=== PATIENT | female | born 1950 | race Caucasian/White ===

== ENCOUNTER 2017-10-16 19:35 | Inpatient (IN) | payer OTHER ==
--- NOTE | 2017-10-16 19:45 | CPEKG ---
Heart Rate: 98 RR Interval: 612 P-R Interval: 132 QRSD Interval: 92 QT Interval: 364 QTC Interval: 465 P Hudson: 46 QRS Hudson: 61 T Wave Hudson: 28 EKG Severity - NORMAL ECG - EKG Impression: SINUS RHYTHM Electronically Signed By: Maurilio Grossman 17-Oct-2017 08:04:30
--- NOTE | 2017-10-16 20:20 | EDPHY ---
H & P Stated Complaint: Chest pain, altered mental status Time Seen by Provider: 10/16/17 19:40 HPI/ROS: CHIEF COMPLAINT: Chest pain Limitations: Expressive aphasia, history per family and Dr. Son HISTORY OF PRESENT ILLNESS: 67-year-old female status post recent hemorrhagic CVA presents with chest pain. Onset of SOB and left sided cp this afternoon. Associated with nausea. The patient is unable to provide any details about the chest pain. She currently does not have chest pain. Nitroglycerin given by EMS. Per Dr. Son, pt's cognition has changed in the past 3 days. Unclear etiology of change in mentation, but possibly secondary to baclofen. She was on Wellbutrin prior to the CVA and then switched to Celebrex. Celebrex was discontinued d/t cognitive change. CT scan brain today showed no new changes. Per family, pt is normally quite sociable and agreeable. Fairly abrupt change in the past 3-4 days. REVIEW OF SYSTEMS: Unable to determine - Personal History Current Tetanus Diphtheria and Acellular Pertussis (TDAP): Yes - Medical/Surgical History Hx Asthma: No Hx Chronic Respiratory Disease: No Hx Diabetes: No Hx Cardiac Disease: No Hx Renal Disease: No Hx Cirrhosis: No Hx Alcoholism: No Hx HIV/AIDS: No Hx Splenectomy or Spleen Trauma: No Other PMH: cataract surgery, CVA August 2017 - Social History Smoking Status: Former smoker Additional Social History: - Physical Exam Exam: General Appearance: Alert, pleasant, expressive aphasia Eyes: Pupils equal and round, no conjunctival pallor or injection ENT, Mouth: Mucous membranes moist Neck: Normal inspection Respiratory: Lungs are clear to auscultation Cardiovascular: Regular rate and rhythm Gastrointestinal: Abdomen is soft and nontender Neurological: Alert, left sided hemiparesis and neglect Skin: Warm and dry Extremities: No tenderness Psychiatric: Tangential thought process, fluctuating affect Constitutional: Initial Vital Signs Temperature (C) 36.9 C 10/16/17 19:43 Heart Rate 108 H 10/16/17 19:43 Respiratory Rate 20 10/16/17 19:43 Blood Pressure 133/85 H 10/16/17 19:43 O2 Sat (%) 92 10/16/17 19:43 O2 Delivery Mode Nasal Cannula O2 (L/minute) 2 Allergies/Adverse Reactions: prednisone Allergy (Verified 10/16/17 19:43) Home Medications: Medication Instructions Recorded Cholecalciferol Vit D3 [Vitamin D3 1,000 units PO DAILY 09/27/17 (*)] Enoxaparin [Lovenox 40 MG (*)] 40 mg SQ DAILY 09/27/17 Metoprolol Tartrate [Lopressor 50 50 mg PO BID 09/27/17 mg (*)] Pantoprazole Sodium [Protonix 40mg 40 mg PO DAILY 09/27/17 (*)] amLODIPine BESYLATE [Norvasc 5 mg 5 mg PO DAILY 09/27/17 (*)] Acetaminophen [Tylenol ES 500 mg 1,000 mg PO Q8 10/16/17 (*)] Baclofen [Baclofen 10 mg (*)] 5 mg PO QID 10/16/17 Bisacodyl [Dulcolax] 10 mg RC DAILY PRN 10/16/17 Cetirizine [ZyrTEC 10 mg (*)] 10 mg PO DAILY 10/16/17 Citalopram [CeleXA] 20 mg PO DAILY 10/16/17 Methyl Salicylate/Menthol [Bengay 1 bao TP Q6 PRN 10/16/17 (*)] Mineral Oil/Pet Hy-Phl [Aquaphor 1 bao TP BID 10/16/17 Ointment (*)] Sennosides [Senokot 8.6mg (OTC)] 1 each PO BID PRN 10/16/17 Tears/Dextran 70/Hypromellose 1 drop EACHEYE Q2 PRN 10/16/17 [Natural Balance Tears (*)] diphenhydrAMINE [Benadryl Cream] 1 bao TP QID PRN 10/16/17 traMADol [Ultram 50 mg (*)] 50 mg PO Q6 PRN 10/16/17 traZODone [traZODONE 50MG (*)] 50 mg PO HS 10/16/17 Medical Decision Making - Diagnostics EKG Interpretation: EKG interpreted by me reveals normal sinus rhythm, rate 98, no ST or T segment changes. Interpretation: Normal EKG Imaging Results: Imaging Impressions Chest X-Ray 10/16/17 19:47 Impression: Peribronchial cuffing may be manifestation of interstitial edema or bronchitis. Chest/Thorax CTA 10/16/17 21:00 Impression: 1. Nondiagnostic study for pulmonary embolism due to transient interruption of the contrast column (due to the patient talking throughout the acquisition). 2. Normal caliber thoracic aorta. No dissection. 3. Clear lungs. Comment: The case was discussed with Dr. Shu Patel. Dr. Patel indicated the patient should be transferred back to the Emergency Department for further assessment. E:amm CXR: NAD ED Course/Re-evaluation: This pt presents with cp and SOB, asymptomatic now. EKG reveals no evidence of ischemia or dysrhythmia. Chest x-ray is unremarkable. ddimer slightly high; CTA chest ordered to r/o PE, though poor study, unable to visualize pulm vasculature. Will hold off on repeat CT for now, keep pt on Lovenox. Consulted with Dr. Son, plan for admission, eval of cp and AMS. New AMS, unclear etiology, requests MRI while hospitalized. The hospitalist service was consulted for admission. Differential Diagnosis: Differential diagnosis includes though it is not limited to pneumonia, pneumothorax, pulmonary embolism, aortic dissection, pericarditis, acute coronary syndrome. - Data Points Laboratory Results: Laboratory Results 10/16/17 20:16 10/16/17 20:16 10/16/17 10/16/17 10/16/17 20:20 20:16 20:16 WBC RBC Hgb Hct MCV MCH MCHC RDW Plt Count MPV Neut % (Auto) Lymph % (Auto) [place] % (Auto) Eos % (Auto) Baso % (Auto) Nucleat RBC Rel Count Absolute Neuts (auto) Absolute Lymphs (auto) Absolute Monos (auto) Absolute Eos (auto) Absolute Basos (auto) Absolute Nucleated RBC Immature Gran % Immature Gran # D-Dimer 0.68 ug/mLFEU H ug/mLFEU (0.00-0.50) Sodium 136 mEq/L mEq/L (135-145) Potassium 4.0 mEq/L mEq/L (3.3-5.0) Chloride 103 mEq/L mEq/L (97-110) Carbon Dioxide 24 mEq/l mEq/l (22-31) Anion Gap 9 mEq/L mEq/L (8-16) BUN 10 mg/dL mg/dL (7-23) Creatinine 0.6 mg/dL mg/dL (0.6-1.0) Estimated GFR > 60 Glucose 250 mg/dL H mg/dL (70-100) Calcium 9.9 mg/dL mg/dL (8.5-10.4) Total Bilirubin 0.2 mg/dL mg/dL (0.1-1.4) Conjugated Bilirubin 0.2 mg/dL mg/dL (0.0-0.5) Unconjugated Bilirubin 0.0 mg/dL mg/dL (0.0-1.1) AST 42 IU/L IU/L (14-46) ALT 67 IU/L H IU/L (9-52) Alkaline Phosphatase 91 IU/L IU/L (38-126) POC Troponin I 0.00 ng/mL ng/mL (0.00-0.08) NT-Pro-B Natriuret Pep 205 pg/mL H pg/mL (0-125) Total Protein 6.2 g/dL L g/dL (6.3-8.2) Albumin 3.7 g/dL g/dL (3.5-5.0) Urine Color Urine Appearance Urine pH Ur Specific [place] Urine Protein Urine Ketones Urine Blood Urine Nitrate Urine Bilirubin Urine Urobilinogen Ur Leukocyte Esterase Urine RBC Urine WBC Ur Epithelial Cells Urine Bacteria Urine Glucose Ethyl Alcohol < 10 mg/dL mg/dL (0-10) 10/16/17 10/16/17 20:16 20:03 WBC 7.83 10^3/uL 10^3/uL (3.80-9.50) RBC 5.13 10^6/uL 10^6/uL (4.18-5.33) Hgb 15.2 g/dL g/dL (12.6-16.3) Hct 45.2 % % (38.0-47.0) MCV 88.1 fL fL (81.5-99.8) MCH 29.6 pg pg (27.9-34.1) MCHC 33.6 g/dL g/dL (32.4-36.7) RDW 13.9 % % (11.5-15.2) Plt Count 396 10^3/uL 10^3/uL (150-400) MPV 10.1 fL fL (8.7-11.7) Neut % (Auto) 65.5 % % (39.3-74.2) Lymph % (Auto) 23.1 % % (15.0-45.0) [place] % (Auto) 8.8 % % (4.5-13.0) Eos % (Auto) 1.7 % % (0.6-7.6) Baso % (Auto) 0.4 % % (0.3-1.7) Nucleat RBC Rel Count 0.0 % % (0.0-0.2) Absolute Neuts (auto) 5.13 10^3/uL 10^3/uL (1.70-6.50) Absolute Lymphs (auto) 1.81 10^3/uL 10^3/uL (1.00-3.00) Absolute Monos (auto) 0.69 10^3/uL 10^3/uL (0.30-0.80) Absolute Eos (auto) 0.13 10^3/uL 10^3/uL (0.03-0.40) Absolute Basos (auto) 0.03 10^3/uL 10^3/uL (0.02-0.10) Absolute Nucleated RBC 0.00 10^3/uL 10^3/uL (0-0.01) Immature Gran % 0.5 % % (0.0-1.1) Immature Gran # 0.04 10^3/uL 10^3/uL (0.00-0.10) D-Dimer Sodium Potassium Chloride Carbon Dioxide Anion Gap BUN Creatinine Estimated GFR Glucose Calcium Total Bilirubin Conjugated Bilirubin Unconjugated Bilirubin AST ALT Alkaline Phosphatase POC Troponin I NT-Pro-B Natriuret Pep Total Protein Albumin Urine Color YELLOW Urine Appearance CLEAR Urine pH 6.0 (5.0-7.5) Ur Specific [place] 1.008 (1.002-1.030) Urine Protein NEGATIVE (NEGATIVE) Urine Ketones NEGATIVE (NEGATIVE) Urine Blood NEGATIVE (NEGATIVE) Urine Nitrate NEGATIVE (NEGATIVE) Urine Bilirubin NEGATIVE (NEGATIVE) Urine Urobilinogen NEGATIVE EU EU (0.2-1.0) Ur Leukocyte Esterase NEGATIVE (NEGATIVE) Urine RBC NONE SEEN /hpf /hpf (0-3) Urine WBC 1-3 /hpf /hpf (0-3) Ur Epithelial Cells TRACE /lpf /lpf (NONE-1+) Urine Bacteria TRACE /hpf H /hpf (NONE SEEN) Urine Glucose 3+ H (NEGATIVE) Ethyl Alcohol Point of Care Test Results: Chemistry 10/16/17 20:20 POC Troponin I 0.00 ng/mL ng/mL (0.00-0.08) Departure - Departure
[2017-10-16 20:39] LABS: PLATELET COUNT 396 10^3/uL (150-400)
[2017-10-16] MEDS ORDERED: IOPAMIDOL (ISOVUE 370) 100 ML BTL IV ONE (21:03)
[2017-10-16] MEDS ORDERED: ONDANSETRON 4 MG/2 ML VIAL IVP PRN (21:10)
[2017-10-16] MEDS ORDERED: ONDANSETRON DISINTEGRATING 4 MG TAB PO PRN (21:10)
--- NOTE | 2017-10-16 22:47 | GHP ---
[f rep st] HISTORY AND PHYSICAL DATE OF ADMISSION: 10/16/2017 CHIEF COMPLAINT: Chest pain, confusion. HISTORY OF PRESENT ILLNESS: This is obtained from Dr. Perez in the ER and review of rehab notes, as patient is encephalopathic. HISTORY OF PRESENT ILLNESS: A 67-year-old female who presented to [facility] 09/10 with left upper and lower extremity weakness and was found to have a right frontal intraparenchymal hemorrhagic stroke. She underwent craniotomy 09/11. She was admitted to rehab at [facility] on 09/27 under the care of Dr. Jones with cognitive impairment, left hemiparesis. Brought to ER for left-sided chest pain with shortness of breath and nausea this afternoon. No radiation, numbness, or tingling. She is not good historian with acute AMS. Per Dr. Gotti at rehab, her mental status has changed over the past 3 days. She is more confused and not participating in therapies. CTH today was stable, but MRI not complete, because of agitation. Of note, Baclofen had been increased to 15mg QID yesterday. Was on Wellbutrin before stroke and this was changed to Celexa at rehab. Both Baclofen and Celexa stopped today. Upon my interview, patient says the ceiling is spinning. She is talking to her Ilia, who is not in the room. REVIEW OF SYSTEMS: I completed a 10-point review of systems per chart review. PAST MEDICAL HISTORY: Hypertension, cataracts, right frontal intraparenchymal hemorrhagic stroke, depression. PAST SURGICAL HISTORY: Cataract surgery, craniotomy 09/11/17. SOCIAL HISTORY: Tobacco dependence. No alcohol. FAMILY HISTORY: Noncontributory. CURRENT MEDICATIONS: Tylenol, Zofran, Norvasc 5 mg daily, Zyrtec, vitamin D, Celexa 20 mg stopped today, baclofen 15 mg q.i.d. scheduled, stopped today, Lovenox, metoprolol 50 mg b.i.d., Protonix 40 daily, senna, tramadol 50 mg q.6 hours p.r.n., trazodone 50 mg q.h.s., ALLERGIES: Prednisone. PHYSICAL EXAMINATION: VITAL SIGNS: Temperature is 135/80. Heart rate is in 100s, respiration 19, 96% on 2 L. Temperature is 36.9. GENERAL: Lying in bed , no acute distress, but mildly restless. HEENT: PERRLA. Moist mucous membranes. CV: Regular, tachy. Reproducible chest pain, left side. There is no rash or ulceration over chest or breasts. LUNGS: Clear anteriorly. GI: Soft, nontender, nondistended. Positive bowel sounds. : No Anderson. MUSCULOSKELETAL: 5/5 upper extremity strength, right. Persistent left hemiparesis, upper and lower extremities. NEURO: 2 through 12 intact. PSYCH: She is agitated. She is talking to her , who is not in the room. She is oriented to our president, knows she is in the hospital but not in [facility], does not know the year. LABS: WBC 7, hemoglobin 15, hematocrit 45, platelets 396. Dimer is 0.68. Sodium 136, potassium 4.0, chloride 103, carbon dioxide 24, creatinine 0.6, glucose 250. LFT: Total bili 0.2, AST 42, ALT 67. Troponin 0.00. BNP is 205. Total protein 6.2, albumin is 3.7. UA: Trace bacteria, 1-3 whites. BAL is negative. EKG is personally reviewed by me, normal sinus rhythm, artifact. ASSESSMENT AND PLAN: 1. Left-sided chest pain: not able to endorse a full history. There is reproducible component on my exam; may be radiation from shoulder pain. Had negative xray 10/08. Initial troponin, EKG negative for ischemia. Repeat troponin. TTE in August at [place] [facility] with an EF 75% and left ventricular hypertrophy. Dimer was minimally elevated; CTA ordered in ER. 2. [id number] encephalopathy: underlying cognitive impairment related to her stroke, but this has worsened over the last 3 days. Differential is infection, new stroke, or medications. CT head today was stable. Needs MRI; likely with sedation. Baclofen and Celexa were new medications for her at rehab , and these have been discontinued. UA is normal, CXR negative. 3. Recent intraparenchymal hemorrhage and evacuation: CT stable today. She has been in inpatient rehab. She has profound left upper and lower extremity hemiparesis. Continue physical therapy, occupational therapy. She will likely need discharge to a jail facility given lack of caregivers at home. 4. Dysphagia: Related to stroke. Continue speech therapy. Continue modified diet. 5. Recent left shoulder pain: limited range of motion. She had a normal x- ray 10/08 and does have a history of rotator cuff injury. She has a sling to offload. PRN APAP. 6. Hypertension: Amlodipine and metoprolol. 7. Tobacco dependence: Previously on Wellbutrin, can consider a nicotine patch. 8. Diet: Speech eval in the morning. DISPOSITION: Patient warrants inpatient admission for evaluation of chest pain , repeat MRI, and further evaluation of acute encephalopathy. /[id number]/MODL MTDD
[2017-10-16] MEDS ORDERED: DIPHENHYDRAMINE CREAM TP PRN (23:02)
[2017-10-16] MEDS ORDERED: TEARS/DEXTRAN 70/HYPROMELLOSE 15 ML OPHT.BTL EACHEYE PRN (23:02)
[2017-10-16] MEDS ORDERED: SENNOSIDES 1 TAB PO PRN (23:02)
[2017-10-17] MEDS: METOPROLOL TARTRATE 50 MG TAB PO SCH ×3 (02:01→21:19)
[2017-10-17] MEDS: amLODIPine BESYLATE 5 MG TAB PO SCH (09:19)
[2017-10-17] MEDS: CHOLECALCIFEROL VIT D3 1,000 UNITS TAB PO SCH (09:19)
[2017-10-17] MEDS: PANTOPRAZOLE SODIUM 40 MG TAB PO SCH (09:19)
[2017-10-17] MEDS: AQUAPHOR OINTMENT 3.5 OZ JAR TP SCH ×2 (09:22→21:19)
--- NOTE | 2017-10-17 11:41 | PDMN ---
Medical Necessity Medical necessity: Pt meets IP criteria per MD; est los >2 mn for eval/tx of worsening encephalopathy, chest pain, shortness of breath & nausea s/p recent craniotomy; requiring further workup/monitoring & therapies; hx CVA, dysphagia, upper & lower extremity hemiparesis & HTN; per H&P & order 10/16/17
--- NOTE | 2017-10-17 11:56 | ASMTCASEMG ---
Living Arrangements What is your living Answers: With Spouse arrangement? Who do you live with? Type Of Residence What kind of residence do Answers: House you live in? Discharge Plan Comments Coordination Status Comments Notes: Pt is a 67 y/o female admitted for ams, recent cva and chest pain. Pt was recently at [facility] inpatient rehab from 09/27/17 to 10/16/17. Therapies have been ordered and awaiting recommendations. Pt will most likely d/c back to [facility] inpatient rehab, if appropriate. CM spoke to pts son Tristan (P# [phone]) and provided updates. CM to follow. Plan: TBD Date Signed: 10/17/2017 11:55 AM Electronically Signed By:RAPHAEL Harden
[2017-10-17] MEDS: ACETAMINOPHEN 325 MG TAB PO PRN (12:37)
[2017-10-17] MEDS ORDERED: LIDOCAINE 2% VISCOUS 15 ML UDCUP PO ONE (12:52)
[2017-10-17] MEDS ORDERED: MAG HYDROX/AL HYDROX/SIMETH 30 ML UDCUP PO ONE (12:52)
[2017-10-17] MEDS ORDERED: HYOSCYAMINE SULFATE 0.125 MG TAB PO ONE (12:52)
--- NOTE | 2017-10-17 13:06 | HOSPPROG ---
Hospitalist Progress Note Assessment/Plan: Chest pain - EKG non-ischemic, trop neg x2. Doubt PE as no pleuritic symptoms, tachycardia or hypoxia. D dimer essentially negative when age adjusted criteria applied, CTA non-diagnostic. Will check LE us (neg). With burning sensation she describes, will try GI cocktail, though I suspect this is MSK in origin related to her spasticity of LUE. Resume lower dose of Baclofen and monitor. PT/OT evals. Encephalopathy - CT and MRI do not suggest new stroke or hemorrhage. Mentation seems improved today. Could have been from rapid up-titration of Baclofen from 5 QID to 15 QID. She was previously doing well on lower dose and she wishes to resume this. Will restart Baclofen at lower dose of 5 mg TID. SSRI also held ICH - recent craniotomy at [place] in 08/2017. Dense left hemiparesis. She has not progressed after 1 month of inpt rehab. Cont PT/OT, speech Dysphagia - speech Hypertension - a bit labile, but fairly well controlled on Metoprolol and Amlodipine. Will continue at current doses. DVT PPLX - high risk, start Lovenox Dispo - inpt, will need ongoing hospitalization for further evaluation and acute PT/OT. Per rehab notes, she has not made progress there and SNF is recommended. CM following. Subjective: Pt doing ok. She still has "burning" sensation on her left chest wall, seems positional. No fevers/chills or cough. No SOB. Objective: Vital Signs Temp Pulse Resp BP Pulse Ox 36.9 C 89 18 155/95 H 91 L 10/17/17 11:45 10/17/17 11:45 10/17/17 11:45 10/17/17 11:45 10/17/17 11:45 10/16/17 10/17/17 10/18/17 05:59 05:59 05:59 Intake Total 550 500 Output Total 150 Balance 400 500 - Physical Exam Constitutional: no apparent distress Eyes: PERRL Ears, Nose, Mouth, Throat: moist mucous membranes Cardiovascular: regular rate and rhythym Respiratory: no respiratory distress, clear to auscultation Gastrointestinal: normoactive bowel sounds, soft, non-tender abdomen Skin: warm Musculoskeletal: other (dense left hemiparesis) Neurologic: AAOx3 Psychiatric: interacting appropriately ICD10 Worksheet Patient Problems: Problems Problem Status Onset Chest pain Acute Altered mental status Acute Hemorrhagic cerebrovascular accident (CVA) Acute
[2017-10-17] MEDS ORDERED: PNEUMOC 13-VAL CONJ-DIP CRM/PF 0.5 ML SYR IM ONE (13:16)
[2017-10-17] MEDS: BACLOFEN 10 MG TAB PO SCH ×3 (13:24→21:19)
[2017-10-17] MEDS: ENOXAPARIN 40 MG/0.4 ML SYR SC SCH (13:49)
--- NOTE | 2017-10-17 14:52 | ASMTCMCOM ---
CM Note CM Note Notes: CM spoke w/ pts family regarding d/c POC per their request. PT is recommending inpatient rehab. CM spoke to Yudith from inpatient rehab and they had a team discussion today and thought that it would not be appropriate for pt to return. Yuidth reports that pt is unable to do 3 hours of therapies a day. The recommendation from inpatient rehab is for pt to transition to a SNF. CM spoke to Dr. Anthony. Dr. Anthony would like pt to get into a stroke rehab program. Referral sent to inpatient rehab facilities. Family would like another referral made to [facility] in [place]. CM to follow. Plan: TBD Date Signed: 10/17/2017 02:52 PM Electronically Signed By:RAPHAEL Harden
[2017-10-18] MEDS: ACETAMINOPHEN 325 MG TAB PO PRN ×2 (04:27→17:48)
[2017-10-18] MEDS ORDERED: D50W 25 GM/50 ML SYR IVP PRN (06:45)
[2017-10-18] MEDS: INSULIN LISPRO 100 UNIT/ML SC SCH ×3 (09:35→17:35)
[2017-10-18] MEDS: ENOXAPARIN 40 MG/0.4 ML SYR SC SCH (09:37)
[2017-10-18] MEDS: BACLOFEN 10 MG TAB PO SCH ×3 (09:37→21:48)
[2017-10-18] MEDS: PANTOPRAZOLE SODIUM 40 MG TAB PO SCH (09:37)
[2017-10-18] MEDS: CHOLECALCIFEROL VIT D3 1,000 UNITS TAB PO SCH (09:37)
[2017-10-18] MEDS: amLODIPine BESYLATE 5 MG TAB PO SCH (09:37)
[2017-10-18] MEDS: METOPROLOL TARTRATE 50 MG TAB PO SCH ×2 (09:37→20:17)
[2017-10-18] MEDS: AQUAPHOR OINTMENT 3.5 OZ JAR TP SCH ×2 (09:38→20:18)
--- NOTE | 2017-10-18 10:49 | HOSPPROG ---
Hospitalist Progress Note Assessment/Plan: Chest pain - EKG non-ischemic, trop neg x2. Doubt PE as no pleuritic symptoms, tachycardia or hypoxia. D dimer essentially negative when age adjusted criteria applied, CTA non-diagnostic. LE u/s neg for DVT. Symptoms improved with resumption of lower dose of Baclofen. Encephalopathy - CT and MRI do not suggest new stroke or hemorrhage. Mentation seems improved today, but still intermittently confused and at times hallucinatory. Rapid up-titration of Baclofen from 5 QID to 15 QID may have been contributory. Cont lower dose of Baclofen, avoid up-titration for now. Trial low dose seroquel at bedtime to address hallucinations and sleep disturbance. Discussed black box warning with pt and family. ICH - recent craniotomy at [facility] in 08/2017. Dense left hemiparesis. She has not progressed after 1 month of inpt rehab. Cont PT/OT, speech. Neurology to consult in am regarding prognosis. Hyperglycemia - SSI, check a1c. Watch bg's with addition of low dose seroquel. Dysphagia - speech recommending inpt rehab, though she has completed several weeks with no progress per their dc summary. Hypertension - a bit labile, but fairly well controlled on Metoprolol and Amlodipine. Will continue at current doses. DVT PPLX - high risk, Lovenox Dispo - inpt, will need ongoing hospitalization for further evaluation and acute PT/OT. Per rehab notes, she has not made progress there and SNF is recommended. CM following. Subjective: Pt is doing a little better today. Pain is improved. She is intermittently confused. Has had some hallucinations. Not sleeping well. No CP or SOB. Objective: Vital Signs Temp Pulse Resp BP Pulse Ox 36.6 C 82 18 122/77 H 90 L 10/18/17 07:38 10/18/17 07:38 10/18/17 07:38 10/18/17 07:38 10/18/17 07:38 10/17/17 10/18/17 10/19/17 05:59 05:59 05:59 Intake Total 550 2500 Output Total 150 Balance 400 2500 - Physical Exam Constitutional: no apparent distress Eyes: PERRL Ears, Nose, Mouth, Throat: moist mucous membranes Cardiovascular: regular rate and rhythym Respiratory: no respiratory distress Gastrointestinal: normoactive bowel sounds, soft, non-tender abdomen Skin: warm Musculoskeletal: other (left hemiplegia with left sided neglect and left hemianopsia) Neurologic: AAOx3 Psychiatric: interacting appropriately ICD10 Worksheet Patient Problems: Problems Problem Status Onset Altered mental status Acute Chest pain Acute Hemorrhagic cerebrovascular accident (CVA) Acute
--- NOTE | 2017-10-18 15:26 | ASMTCMCOM ---
CM Note CM Note Notes: CM spoke to ChristieDelma and Sirena regarding d/c POC. CM discussed w/ them the different levels of care. Christie and Delma had questions about insurance coverage. CM provided them w/ phone number for financial counseling. CM contacted Teagan Uriarte w/ financial counseling and pt has Medicare part A and B coverage. Teagan will follow up with patient on a secondary insurance. Chasity from [employer] came and met w/ them today. [facility] has accepted pt. [facility] denied pt. CM left a msg for Kaila, the telephonic case manager from inpatient rehab. CM to follow. Plan: [facility] SNF Date Signed: 10/18/2017 03:25 PM Electronically Signed By:RAPHAEL Harden
[2017-10-18] MEDS: QUEtiapine FUMARATE 25 MG TAB PO SCH (20:17)
[2017-10-19] MEDS: ACETAMINOPHEN 325 MG TAB PO PRN ×3 (00:32→15:41)
[2017-10-19] MEDS: INSULIN LISPRO 100 UNIT/ML SC SCH ×3 (08:47→18:07)
[2017-10-19] MEDS: amLODIPine BESYLATE 5 MG TAB PO SCH (09:46)
[2017-10-19] MEDS: CHOLECALCIFEROL VIT D3 1,000 UNITS TAB PO SCH (09:46)
[2017-10-19] MEDS: BACLOFEN 10 MG TAB PO SCH ×3 (09:46→20:59)
[2017-10-19] MEDS: ENOXAPARIN 40 MG/0.4 ML SYR SC SCH (09:46)
[2017-10-19] MEDS: PANTOPRAZOLE SODIUM 40 MG TAB PO SCH (09:47)
[2017-10-19] MEDS: METOPROLOL TARTRATE 50 MG TAB PO SCH ×2 (09:47→21:01)
[2017-10-19] MEDS: AQUAPHOR OINTMENT 3.5 OZ JAR TP SCH ×2 (09:47→21:08)
--- NOTE | 2017-10-19 09:52 | HOSPPROG ---
Hospitalist Progress Note Assessment/Plan: Chest pain - Suspect this was related to spasticity. Symptoms improved with resumption of lower dose of Baclofen. EKG non-ischemic, trop neg x2. Doubt PE as no pleuritic symptoms, tachycardia or hypoxia. D dimer essentially negative when age adjusted criteria applied, CTA non-diagnostic. LE u/s neg for DVT. Encephalopathy - CT and MRI do not suggest new stroke or hemorrhage. Mentation seems improved today, but still intermittently confused and at times. Inattentiveness likely related to CVA. In addition, rapid up-titration of Baclofen from 5 QID to 15 QID may have been contributory. Cont lower dose of Baclofen, avoid up-titration for now. Trial low dose seroquel at bedtime to address hallucinations and sleep disturbance. Discussed black box warning with pt and family. ICH - recent craniotomy at [facility] in 08/2017. Dense left hemiparesis with spasticity and hemineglect. She has not progressed after 1 month of inpt rehab. Cont PT/OT, speech. Discussed with neurology. Should have outpt neurology appt for consideration of botox injection to treat spasticity component. Hyperglycemia - Cont SSI. Watch bg's with addition of low dose seroquel. Dysphagia - speech recommending inpt rehab, though she has completed several weeks with no progress per their dc summary. Hypertension - fairly well controlled on Metoprolol and Amlodipine. Continue at current doses. DVT PPLX - high risk, Lovenox Dispo - cont inpt. She has plateaud at inpt rehab and plan is for dc to SNF. However, safety concerns are arising as SNF's cannot accommodate guard rails and roll belts, which pt occasionally needs for safety. CM involved. Not a candidate for LTAC. May need to go to SNF with safety plan including lowering bed, possibly hip pads, etc. Also, option for family to hire 24 hr sitter. Subjective: Pt doing ok today, seems to be back to her baseline. Denies CP or SOB. Mentation is ok, not hallucinatory this am. Objective: Vital Signs Temp Pulse Resp BP Pulse Ox 36.9 C 77 18 124/74 H 95 10/19/17 07:51 10/19/17 07:51 10/19/17 07:51 10/19/17 07:51 10/19/17 07:51 10/18/17 10/19/17 10/20/17 05:59 05:59 05:59 Intake Total 2500 1200 Output Total 700 200 Balance 2500 500 -200 - Physical Exam Constitutional: no apparent distress Eyes: PERRL Ears, Nose, Mouth, Throat: moist mucous membranes Cardiovascular: regular rate and rhythym Respiratory: no respiratory distress Gastrointestinal: normoactive bowel sounds, soft, non-tender abdomen Skin: warm Musculoskeletal: other (dense left hemiparesis with flexion of LUE and hemineglect, also left hemianopsia) Neurologic: AAOx3 Psychiatric: interacting appropriately ICD10 Worksheet Patient Problems: Problems Problem Status Onset Altered mental status Acute Chest pain Acute Hemorrhagic cerebrovascular accident (CVA) Acute
--- NOTE | 2017-10-19 13:05 | NEUROPROG ---
Assessment: HOSPITAL NEUROLOGY CONSULT REQUESTING: Lynda Anthony DO REASON: stroke HPI: 67 year old right-handed woman with a history of HTN, smoking and depression presented in admission from [facility] due to AMS. Records reviewed in [facility]. Patient was admitted to [facility] on 09/10 after experiencing left-sided weakness and headache. She was found to have a large 60ml right frontoparietal IPH, which required surgical evacuation. She was monitored in the ICU with BP control. MRI brain wow was done showing no underlying mass/tumor or vascular malformation and no evidence of amyloid. She was transferred to in rehab on . She had not made much progress in rehab. She had left spastic hemiplegia for which Baclofen was uptitrated. Seemingly after the uptitration of Baclofen the patient developed AMS, becoming more confused and not participating in therapy. Patient also noted chest pain near the left shoulder. She was transferred to [facility] for further eval. Repeat CT head wo showed evolution of her IPH without any new findings. MRI brain wo was attempted but limited due to patient motion. Her Baclofen was held, which resulted in some improvement in her mental status. She is now back on a low dose at 5mg TID (down from 15mg TID ). Neurology consulted mainly to give family some guidance on what to expect regarding recovery and prognosis after her stroke. ROS: As per the HPI, otherwise a complete 12 point ROS was performed and is negative ALLERGIES AND MEDS: As recorded in the EMR - reviewed and reconciled PFSH: As per the intake H&P by Dr. Obregon from 10/16. Rehab notes and [facility] notes also reviewed. EXAM: VS reviewed in EMR GEN: WDWN laying in NAD HEENT: NCAT, sclera anicteric, conjunctiva not injected, MMM, oropharynx clear, no scalp tenderness NECK: supple, nontender, no meningismus CV: RRR s1 s2 wo m/r/c/g. Carotid pulses 2+ wo bruit NEURO: MS: awake, alert, oriented to all spheres. Poor attention. Speech nondysarthric. No language disturbance. Follows commands. Not attending well to left side. Recent/remote memory grossly intact. Mood euthymic. Good fund of knowledge. CN: pupils 3mm round and reactive. Unable to visualize fundi. VFF. Left- sided visual neglect present. Primary gaze centered. Full ocular motility. Facial sensation preserved. Face symmetric. Hearing grossly intact to finger rub. Palatoglossal movements intact. Shoulder shrug and head turn strong. MOTOR: normal bulk. Increased tone in the LUE - arm is adducted and has some flexion about the elbow and wrist. Also with some increased extensor tone in the LLE and adduction in the LLE. No movement in the LUE/LLE, even proximally. Right side has normal tone and full power. SENSORY: Some mildly reduced sensation in the LUE, otherwise intact elsewhere. Has extinction of the left side on double simultaneous stim. COORD: no ataxia FN/HS. Nikhil preserved. REFLEX: plantars upgoing on left, down on right. No clonus. DTRS 2/4 on right , 3/4 on left. 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 She has rather profound deficits as noted above. Given she is about 1.5 months out with early development of significant spasticity and no movements whatsoever in the left arm/leg, I reviewed with the family and patient that she is unlikely to regain much meaningful function in those limbs. Further, given the size of the stroke, I am not optimistic she will recover from her left-sided neglect. I reviewed my exam findings, underlying pathology of her IPH, timeline for stroke recovery (generally plateauing around 3-6 months after initial event), and her current prognosis as noted above. Time will tell if she regains any further function, but as noted above, I am not too optimistic. Regarding secondary prevention, we reviewed that BP control is of the utmost importance. Certainly smoking cessation will help her overall health in addition to cerebrovascular health. She is appropriately on DVT chemoprophylaxis in hospital, but would not start antiplatelet going forward. Recommend not increasing Baclofen. Would follow up outpatient for consideration of Botox injections for her spasticity. Discussed with patient, family and Dr. Anthony. Sign off. Objective: Vital Signs Temp Pulse Resp BP Pulse Ox 36.8 C 70 18 107/61 95 10/19/17 11:45 10/19/17 11:45 10/19/17 11:45 10/19/17 11:45 10/19/17 11:45 10/18/17 10/19/17 10/20/17 05:59 05:59 05:59 Intake Total 2500 1200 Output Total 700 200 Balance 2500 500 -200 Allergies/Adverse Reactions: prednisone Allergy (Verified 10/16/17 19:43)
--- NOTE | 2017-10-19 15:22 | ASMTCMCOM ---
CM Note CM Note Notes: Pts case discussed in tx rounds. CM met w/ pts family to discuss d/c plans. Pts family went over to [facility] for a care conference. Family has significant concerns about pts safety and potential for falling out of bed and chair. Pt has been off a roll belt and sitter since yesterday. CM spoke to Leticia charge nurse, Dr. Anthony and Breana business area manager manager about this case. Breana will call Sirena, the niece. Potential care conference on Sunday w/ MD, neurology, RN, and SWer. Gaspar from [facility] will need to speak to her DON and REAGENT TEND[employer] to discuss if they can still accept pt. [facility] is recommending pt has 24hr supervision until pts confusion clears. CM suggested that family takes turn w/ keeping pt company. CM provided family w/ list of non skilled HC for a private duty caregiver. CM notified [employer] that pt would benefit from a Medicaid evaluation for HCBS services. Teagan Chapito from financial counseling met w/ pt today. Teagan will be inquiring about a secondary insurance. Pt reported to Teagan that she has [employer] as her secondary. CM provided Teagan w/ phone number for Sirena to follow up. Pts son from [place] will be here on Sunday. CM spoke to Kaila social sciences professor at inpatient rehab. CM to follow. Plan: TBD Date Signed: 10/19/2017 03:22 PM Electronically Signed By:RAPHAEL Harden
[2017-10-19] MEDS ORDERED: MELATONIN 3 MG TAB PO SCH (19:30)
--- NOTE | 2017-10-19 20:35 | ASMTCMCOM ---
CM Note CM Note Notes: I spoke with patient's niece at length this afternoon. After meeting with [facility] in [place] today, family is now leaning towards choosing a facility that will accommodate LTC - as they believe she will eventually need to 'live' somewhere. I recommended both [facility] and [facility], rodrigo states they will check into both facilities. Rodrigo has also been in touch with a Medicaid specialist about getting her aunt on Medicaid. CM has also sent a referral to [facility], they will follow-up and screen for Medicaid on Sunday. The family is also exploring ways in which they can either help provided 1:1 care at the SNF or hire private care, (they are considering a Go Fund Me page) as they are quite concerned about patient's safety, rolling out of bed, etc. I explained that patient is medically ready for d/c and encouraged family to tour facilities and follow-up with CM eddy. Rodrigo states patient's other son will be flying into town this weekend and will be driving this plan. Referrals have yet to be sent to the two facilities above, will wait to speak with family about choice. A care conference may be necessary on Sunday, pending events this weekend. We will also need to notify [facility] in [place] of this potential change in plans. Rodrigo has my # and can reach out to me at any time with questions. CM will follow-up this weekend. Plan: SNF Date Signed: 10/19/2017 08:34 PM Electronically Signed By:Breana Harmon RN
[2017-10-19] MEDS: QUEtiapine FUMARATE 25 MG TAB PO SCH (20:59)
[2017-10-19] MEDS: MELATONIN 3 MG TAB PO SCH (21:01)
[2017-10-19] MEDS: METHYL SALICYLATE/MENTHOL OINTMENT TP PRN (21:01)
[2017-10-20] MEDS: ACETAMINOPHEN 325 MG TAB PO PRN (06:29)
[2017-10-20] MEDS: METOPROLOL TARTRATE 50 MG TAB PO SCH ×2 (08:22→22:38)
[2017-10-20] MEDS: CHOLECALCIFEROL VIT D3 1,000 UNITS TAB PO SCH (08:22)
[2017-10-20] MEDS: AQUAPHOR OINTMENT 3.5 OZ JAR TP SCH ×2 (08:22→22:47)
[2017-10-20] MEDS: ENOXAPARIN 40 MG/0.4 ML SYR SC SCH (08:22)
[2017-10-20] MEDS: BACLOFEN 10 MG TAB PO SCH ×3 (08:22→22:40)
[2017-10-20] MEDS: amLODIPine BESYLATE 5 MG TAB PO SCH (08:22)
[2017-10-20] MEDS: PANTOPRAZOLE SODIUM 40 MG TAB PO SCH (08:22)
[2017-10-20] MEDS: INSULIN LISPRO 100 UNIT/ML SC SCH ×3 (09:09→16:10)
--- NOTE | 2017-10-20 13:17 | ASMTCMCOM ---
CM Note CM Note Notes: CM met with Pt and family. Multiple questions re insurance and what services can be paid for. CM recommended that they have a family mtg with physician on Sunday with the focus on what services might be recommended once Pt is [facility] and ready for D/C. There are many family members present with many different thoughts and ideas, with one of the family members becoming upset easily; the environment can become quite chaotic and appears to distress Pt. Family was told family mtg should be limited to Pt and 1-2 people so that the environment is more conducive to decision making. [facility] has accepted Pt. Niece reported [facility] indicated Pt was not making enough progress to return. CM left a message for Yudith in order to rule out [facility] as a discharge option. CM to follow. D/C: TBD Date Signed: 10/20/2017 01:17 PM Electronically Signed By:Keri Moctezuma
[2017-10-20] MEDS: METHYL SALICYLATE/MENTHOL OINTMENT TP PRN (13:52)
[2017-10-20] MEDS: hydrOXYzine HCL 25 MG TAB PO PRN ×2 (15:51→22:38)
--- NOTE | 2017-10-20 18:08 | HOSPPROG ---
Hospitalist Progress Note Assessment/Plan: Ms Barrera is a 67yo F with history of recent R parietal intracranial hemorrhage resulting in L sided paresis and L hemineglect who presents from [facility] due to altered mental status. Encephalopathy: Seems to be improving. CT and MRI brain without new process. Suspect component of delirium related to CVA given waxing/waning in addition to meds (baclofen). Will continue lower dose baclofen, seroquel at bedtime. Adding hydroxyzine to help with mild agitation. R parietal hemorrhagic CVA: Craniotomy at [facility] in 08/2017. Dense left hemiparesis with spasticity and hemineglect. She has not progressed after 1 month of inpt rehab. Cont PT/OT, speech. Discussed with neurology. Should have outpt neurology appt for consideration of botox injection to treat spasticity component. HTN: BP controlled. Continue current regimen of amlodipine and metoprolol. Hyperglycemia: Cont SSI. Watch bg's with addition of low dose seroquel. Dysphagia: Speech recommending inpt rehab, though she has completed several weeks with no progress per their dc summary. VTE ppx: high risk, LMWH Diet: regular Code: FCFT Disposition: Remain inpatient while mental status clearing and while planning for safe discharge. Unclear if going to SNF (family has concern re: safety at this facility) vs long-term care. CM involved. Subjective: Having some right knee pain and left shoulder "nerve pain." Otherwise seems to be doing well. Her family is concerned about agitation. Objective: Vital Signs Temp Pulse Resp BP Pulse Ox 36.8 C 93 18 122/76 H 92 10/20/17 16:00 10/20/17 16:00 10/20/17 16:00 10/20/17 16:00 10/20/17 16:00 10/19/17 10/20/17 10/21/17 05:59 05:59 05:59 Intake Total 1200 1050 250 Output Total 700 400 Balance 500 650 250 - Physical Exam Constitutional: no apparent distress, appears nourished, not in pain Eyes: PERRL, anicteric sclera, EOMI Ears, Nose, Mouth, Throat: moist mucous membranes, hearing normal, ears appear normal, no oral mucosal ulcers Cardiovascular: regular rate and rhythym, no murmur, rub, or gallop Respiratory: no respiratory distress, no rales or rhonchi, clear to auscultation Gastrointestinal: normoactive bowel sounds, soft, non-tender abdomen, no palpable masses Skin: no rashes or abrasions, no fluctuance, no induration Neurologic: other (intermittently confused, R sided upper and lower extremity spasticity, left hemineglect) ICD10 Worksheet Patient Problems: Problems Problem Status Onset Altered mental status Acute Chest pain Acute Hemorrhagic cerebrovascular accident (CVA) Acute
[2017-10-20] MEDS: MELATONIN 3 MG TAB PO SCH (22:39)
[2017-10-20] MEDS: QUEtiapine FUMARATE 25 MG TAB PO SCH (22:40)
[2017-10-21] MEDS: INSULIN LISPRO 100 UNIT/ML SC SCH ×3 (09:36→17:40)
[2017-10-21] MEDS: ENOXAPARIN 40 MG/0.4 ML SYR SC SCH (10:22)
[2017-10-21] MEDS: BACLOFEN 10 MG TAB PO SCH ×3 (10:23→21:34)
[2017-10-21] MEDS: amLODIPine BESYLATE 5 MG TAB PO SCH (10:23)
[2017-10-21] MEDS: PANTOPRAZOLE SODIUM 40 MG TAB PO SCH (10:24)
[2017-10-21] MEDS: AQUAPHOR OINTMENT 3.5 OZ JAR TP SCH ×2 (10:24→21:45)
[2017-10-21] MEDS: METOPROLOL TARTRATE 50 MG TAB PO SCH ×2 (10:24→21:35)
[2017-10-21] MEDS: CHOLECALCIFEROL VIT D3 1,000 UNITS TAB PO SCH (10:24)
--- NOTE | 2017-10-21 12:46 | HOSPPROG ---
Hospitalist Progress Note Assessment/Plan: Ms Barrera is a 67yo F with history of recent R parietal intracranial hemorrhage resulting in L sided paresis and L hemineglect who presents from [facility] due to altered mental status. Encephalopathy: Improving and likely at new baseline. CT and MRI brain without new process. Suspect component of delirium related to CVA given waxing/waning in addition to meds (baclofen). Will continue lower dose baclofen, seroquel at bedtime, hydroxyzine PRN to help with mild agitation. R parietal hemorrhagic CVA: Craniotomy at [facility] in 08/2017. Dense left hemiparesis with spasticity and hemineglect. She has not progressed after 1 month of inpt rehab. Cont PT/OT, speech. Discussed with neurology. Should have outpt neurology appt for consideration of botox injection to treat spasticity component. HTN: BP controlled. Continue current regimen of amlodipine and metoprolol. Hyperglycemia: Cont SSI. Watch bg's with addition of low dose seroquel. Dysphagia: Speech recommending inpt rehab, though she has completed several weeks with no progress per their dc summary. VTE ppx: high risk, LMWH Diet: regular Code: FCFT Disposition: Remain inpatient while mental status clearing and while planning for safe discharge. Per CM, not LTAC candidate. Plan for family meeting tomorrow to discuss option of SNF. Family concerned about SNF due to safety and she may need a safety plan at SNF vs family hiring sitter. Subjective: No issues this morning. Denies pain, shortness of breath, fevers. Objective: Vital Signs Temp Pulse Resp BP Pulse Ox 36.5 C 73 16 143/84 H 91 L 10/21/17 12:04 10/21/17 12:04 10/21/17 12:04 10/21/17 12:04 10/21/17 12:04 10/20/17 10/21/17 10/22/17 05:59 05:59 05:59 Intake Total 1050 650 Output Total 400 Balance 650 650 - Physical Exam Constitutional: no apparent distress, appears nourished, not in pain Eyes: PERRL, anicteric sclera, EOMI Ears, Nose, Mouth, Throat: moist mucous membranes, hearing normal, ears appear normal, no oral mucosal ulcers Cardiovascular: regular rate and rhythym, no murmur, rub, or gallop Respiratory: no respiratory distress, no rales or rhonchi, clear to auscultation Gastrointestinal: normoactive bowel sounds, soft, non-tender abdomen, no palpable masses Skin: no rashes or abrasions, no fluctuance, no induration Neurologic: other (Alert, not fully oriented with tangential thoughts, Left sided paresis, Left hemineglect) Psychiatric: interacting appropriately ICD10 Worksheet Patient Problems: Problems Problem Status Onset Altered mental status Acute Chest pain Acute Hemorrhagic cerebrovascular accident (CVA) Acute
--- NOTE | 2017-10-21 16:12 | ASMTCMCOM ---
CM Note CM Note Notes: Met with son from [place] who expressed frustration and concern over plan of care for his mother. He would like to participate in a family meeting to ascertain plan of care from this point forward. He would be available in the morning about 10 am. I have attempted to see if Dr. Ellis might be able to make this time. CM to follow. Date Signed: 10/21/2017 04:11 PM Electronically Signed By:Alexus Goldsmith RN
[2017-10-21] MEDS: ACETAMINOPHEN 325 MG TAB PO PRN (21:33)
[2017-10-21] MEDS: QUEtiapine FUMARATE 25 MG TAB PO SCH (21:34)
[2017-10-21] MEDS: MELATONIN 3 MG TAB PO SCH (21:35)
[2017-10-21] MEDS: hydrOXYzine HCL 25 MG TAB PO PRN (22:37)
[2017-10-22] MEDS: ACETAMINOPHEN 325 MG TAB PO PRN ×2 (07:07→15:18)
[2017-10-22] MEDS: hydrOXYzine HCL 25 MG TAB PO PRN (08:03)
[2017-10-22] MEDS: METOPROLOL TARTRATE 50 MG TAB PO SCH ×2 (08:03→21:53)
[2017-10-22] MEDS: CHOLECALCIFEROL VIT D3 1,000 UNITS TAB PO SCH (08:03)
[2017-10-22] MEDS: PANTOPRAZOLE SODIUM 40 MG TAB PO SCH (08:03)
[2017-10-22] MEDS: amLODIPine BESYLATE 5 MG TAB PO SCH (08:04)
[2017-10-22] MEDS: BACLOFEN 10 MG TAB PO SCH ×3 (08:04→21:54)
[2017-10-22] MEDS: AQUAPHOR OINTMENT 3.5 OZ JAR TP SCH ×2 (08:16→23:15)
[2017-10-22] MEDS: INSULIN LISPRO 100 UNIT/ML SC SCH (08:17)
[2017-10-22] MEDS: ENOXAPARIN 40 MG/0.4 ML SYR SC SCH (08:47)
[2017-10-22] MEDS: METHYL SALICYLATE/MENTHOL OINTMENT TP PRN (10:07)
[2017-10-22] MEDS ORDERED: oxyCODONE IR 5 MG TAB PO ONE (10:39)
--- NOTE | 2017-10-22 10:54 | ASMTCMCOM ---
CM Note CM Note Notes: Discussed patient with Dr. Ellis. Family meeting involved son Curry and Niece Cheryl. Reviewed patient's medical status and nearing criteria for discharge to SNF. Family is coming to terms with challenges in setting of patient's high fall risk and providing additional services to help with patient safety as in hiring helpers to sit with patient as 24 hour care givers. I will provide them with resources. I have placed a call to Jacquelyn at [facility] as family is still wishing to pursue placement at this facility. CM to follow. Plan: To SNF with additional caregivers as provided by family. Date Signed: 10/22/2017 10:47 AM Electronically Signed By:Alexus Goldsmith RN
[2017-10-22] MEDS ORDERED: QUEtiapine FUMARATE 25 MG TAB PO ONE ×2 (11:45→23:26)
--- NOTE | 2017-10-22 13:33 | ASMTCMCOM ---
CM Note CM Note Notes: This CM spoke with Josie at [facility], they are denying patient admission at this time as they feel unable to meet the needs of the patient and family. I attempted to reach Jamar her son and left a message for he and his cousin to possible check into other facilities. Awaiting a return call. Referrals to [facility] as well as [facility]. Mei Lundy also aware of situation. CM to follow. Plan: To SNF when medically ready for discharge. Date Signed: 10/22/2017 01:31 PM Electronically Signed By:Alexus Goldsmith RN
--- NOTE | 2017-10-22 14:59 | HOSPPROG ---
Hospitalist Progress Note Assessment/Plan: Ms Barrera is a 67yo F with history of recent R parietal intracranial hemorrhage resulting in L sided paresis and L hemineglect who presents from [facility] due to altered mental status. Encephalopathy with agitated delirium: Worsened this morning. Unclear precipitant. Will discontinue hydroxyzine (started over weekend) and add on PRN seroquel for AM in addition to scheduled seroquel at bedtime. Will continue to avoid centrally acting meds and partake in delirium precautions. Family updated. R parietal hemorrhagic CVA: Craniotomy at [facility] in 08/2017. Dense left hemiparesis with spasticity and hemineglect. She has not progressed after 1 month of inpt rehab and is no longer a candidate for this. Cont PT/OT, speech. Discussed with neurology. Should have outpt neurology appt for consideration of botox injection to treat spasticity component. HTN: BP controlled. Continue current regimen of amlodipine and metoprolol. Hyperglycemia: Discontinued SSI (haven't used) and BG checks to limit delirium. Dysphagia: Now on regular diet per PEDIATRIC DENTAL ASSISTANT. VTE ppx: high risk, LMWH Diet: regular Code: FCFT Disposition: Remain inpatient for management of agitated delirium/acute encephalopathy. Not candidate for acute rehab and thus plan for SNF discharge when medically ready. Had family meeting 10/22 with son and niece and CM. Updated family on medical needs and transition to SNF. They are seeking out SNFs in the area and agreeable to this option. Subjective: Had 2 falls off bed last night, no headstrike or LOC per RN. Agitated this morning. Complaining of pain in back of neck. Objective: Vital Signs Temp Pulse Resp BP Pulse Ox 36.8 C 78 18 115/82 H 91 L 10/22/17 08:00 10/22/17 08:00 10/22/17 08:00 10/22/17 08:00 10/22/17 08:00 10/21/17 10/22/17 10/23/17 05:59 05:59 05:59 Intake Total 650 300 Balance 650 300 - Physical Exam Constitutional: other (agitated, intermittently appears uncomfortable) Eyes: PERRL, anicteric sclera, EOMI Ears, Nose, Mouth, Throat: moist mucous membranes, hearing normal, ears appear normal, no oral mucosal ulcers Cardiovascular: regular rate and rhythym, no murmur, rub, or gallop Respiratory: no respiratory distress, no rales or rhonchi, clear to auscultation Gastrointestinal: normoactive bowel sounds, soft, non-tender abdomen, no palpable masses Skin: no rashes or abrasions, no fluctuance, no induration Neurologic: other (alert but not oriented, L hemiparesis with spasticity, L hemineglect) Psychiatric: other (agitated ) ICD10 Worksheet Patient Problems: Problems Problem Status Onset Altered mental status Acute Chest pain Acute Hemorrhagic cerebrovascular accident (CVA) Acute
[2017-10-22] MEDS ORDERED: QUEtiapine FUMARATE 25 MG TAB PO PRN (15:30)
[2017-10-22] MEDS: QUEtiapine FUMARATE 25 MG TAB PO SCH (21:52)
[2017-10-22] MEDS: MELATONIN 3 MG TAB PO SCH (21:53)
[2017-10-23] MEDS ORDERED: QUEtiapine FUMARATE 25 MG TAB PO PRN (09:00)
[2017-10-23] MEDS: PANTOPRAZOLE SODIUM 40 MG TAB PO SCH (12:13)
[2017-10-23] MEDS: METOPROLOL TARTRATE 50 MG TAB PO SCH ×2 (12:14→19:26)
[2017-10-23] MEDS: CHOLECALCIFEROL VIT D3 1,000 UNITS TAB PO SCH (12:14)
[2017-10-23] MEDS: BACLOFEN 10 MG TAB PO SCH (12:14)
[2017-10-23] MEDS: amLODIPine BESYLATE 5 MG TAB PO SCH (12:14)
[2017-10-23] MEDS: ACETAMINOPHEN 325 MG TAB PO PRN (12:14)
[2017-10-23] MEDS: ENOXAPARIN 40 MG/0.4 ML SYR SC SCH (12:15)
[2017-10-23] MEDS: AQUAPHOR OINTMENT 3.5 OZ JAR TP SCH ×2 (12:15→19:28)
--- NOTE | 2017-10-23 15:18 | HOSPPROG ---
Hospitalist Progress Note Assessment/Plan: Ms Barrera is a 67yo F with history of recent R parietal intracranial hemorrhage resulting in L sided paresis and L hemineglect who presents from [facility] due to altered mental status. # Acute encephalopathy with agitated delirium: Worsened over last 2 days. Unclear precipitant. Discontinued centrally acting medications including baclofen for now. Will check CBC, BMP, TSH, UA. Continue seroquel 12.5mg daily PRN and QHS. Delirium precautions. #R parietal hemorrhagic CVA: Craniotomy at [facility] in 08/2017. Dense left hemiparesis with spasticity and hemineglect. She has not progressed after 1 month of inpt rehab and is no longer a candidate for this. Cont PT/OT, speech. Discussed with neurology. Should have outpt neurology appt for consideration of botox injection to treat spasticity component. #HTN: BP controlled. Continue current regimen of amlodipine and metoprolol. #Hyperglycemia: Discontinued SSI (haven't used) and BG checks to limit delirium. #Dysphagia: Now on regular diet per ADULT MANAGER. VTE ppx: high risk, LMWH Diet: regular Code: FCFT Disposition: Remain inpatient for management of agitated delirium/acute encephalopathy. Not candidate for acute rehab and thus plan for SNF discharge when medically ready, hopefully within next day or so pending improvement in delirium. Had family meeting 10/22 with son and niece and CM. Updated family on medical needs and transition to SNF. They are seeking out SNFs in the area and agreeable to this option. Subjective: Agitated yesterday afternoon requiring additional seroquel. Slept through the night and into morning however upon wakening continues to demonstrate agitation/irritability. She denies pain, nausea, dysuria, constipation. Objective: Vital Signs Temp Pulse Resp BP Pulse Ox 36.6 C 76 16 126/73 H 93 10/23/17 13:50 10/23/17 06:23 10/23/17 06:23 10/23/17 06:23 10/23/17 06:23 10/22/17 10/23/17 10/24/17 05:59 05:59 05:59 Intake Total 300 300 Balance 300 300 - Physical Exam Constitutional: other (agitated but in no distress) Eyes: PERRL, anicteric sclera, EOMI Ears, Nose, Mouth, Throat: moist mucous membranes, hearing normal, ears appear normal, no oral mucosal ulcers Cardiovascular: regular rate and rhythym, no murmur, rub, or gallop Respiratory: no respiratory distress, no rales or rhonchi, clear to auscultation Gastrointestinal: normoactive bowel sounds, soft, non-tender abdomen, no palpable masses Genitourinary: no bladder fullness, no bladder tenderness, no renal bruits Skin: no rashes or abrasions, no fluctuance, no induration Neurologic: other (alert but not oriented, Left sided hemiparesis, mild left hemineglect) Psychiatric: encephalopathic, other (intermittently agitated and climbing out of bed) ICD10 Worksheet Patient Problems: Problems Problem Status Onset Altered mental status Acute Chest pain Acute Hemorrhagic cerebrovascular accident (CVA) Acute
[2017-10-23] MEDS ORDERED: BISACODYL 10 MG SUPP PR PRN (16:32)
[2017-10-23] MEDS ORDERED: SENNOSIDES/DOCUSATE SODIUM TAB PO PRN (16:32)
--- NOTE | 2017-10-23 16:47 | ASMTCMCOM ---
CM Note CM Note Notes: Patient reviewed in rounds. Agitation persists. She did sleep well. family remains guarded and fearful of safe dc to SNF. They are inquiring about another neurologist to consult. informed. I have spoken to them at length regarding their options for SNF and the uncertainty and unpredictability of presentation with a stroke patient. The patient remains profoundly spastic and has significant left sided neglect. She also exhibits emotional outbursts and disorganized thoughts. I have explained that in lieu of taking her home and caring for her themselves they can arrange for sitters at what ever facility they may choose. They have expressed near disbelief at the impact of covering the cost of sitters. Over 45 minutes spent counseling family today. I called over to inpatient rehab where I was informed that she is not eligible to return to acute care due to lack of progress. I also spoke to Kaila Roldan the CM at inpatient who has worked extensively with the family and reports that the family has been informed of progress and need for SNF with added care paid for by family for a long period of time. Will see if the [facility] Program Co-ordinator might be able to visit with the family to help assist with understanding the complexities of her situation. Plan: To SNF when medically cleared for discharge. Date Signed: 10/23/2017 04:47 PM Electronically Signed By:Alexus Goldsmith RN
[2017-10-23] MEDS: QUEtiapine FUMARATE 25 MG TAB PO SCH (19:26)
[2017-10-23] MEDS: MELATONIN 3 MG TAB PO SCH (19:26)
[2017-10-23] MEDS: METHYL SALICYLATE/MENTHOL OINTMENT TP PRN (22:40)
[2017-10-24] MEDS: amLODIPine BESYLATE 5 MG TAB PO SCH (08:58)
[2017-10-24] MEDS: METOPROLOL TARTRATE 50 MG TAB PO SCH ×2 (08:58→19:59)
[2017-10-24] MEDS: ENOXAPARIN 40 MG/0.4 ML SYR SC SCH (08:58)
[2017-10-24] MEDS: PANTOPRAZOLE SODIUM 40 MG TAB PO SCH (08:58)
[2017-10-24] MEDS: CHOLECALCIFEROL VIT D3 1,000 UNITS TAB PO SCH (08:58)
[2017-10-24] MEDS: AQUAPHOR OINTMENT 3.5 OZ JAR TP SCH ×2 (11:50→20:03)
--- NOTE | 2017-10-24 12:43 | HOSPPROG ---
Hospitalist Progress Note Assessment/Plan: Ms Barrera is a 67yo F with history of recent R parietal intracranial hemorrhage resulting in L sided paresis and L hemineglect who presents from [place] rehab due to altered mental status. # Acute encephalopathy with agitated delirium: Improving. Unclear precipitant: suspect environmental in setting of CVA. Worsened over last 2 days. Avoiding centrally acting medications including baclofen and especially benzodiazepines for now. Infectious work up per below. Continue seroquel 12.5mg daily PRN and QHS. Delirium precautions. #Leukocytosis: New, unclear etiology. UA, CXR without source. No localizing source on exam. Follow blood cultures, no antibiotics for now. #R parietal hemorrhagic CVA: Craniotomy at [facility] in 08/2017. Dense left hemiparesis with spasticity and hemineglect. She has not progressed after 1 month of inpt rehab and is no longer a candidate for this. Cont PT/OT, speech. Discussed with neurology. Should have outpt neurology appt for consideration of botox injection to treat spasticity component. I do not think that having another neurologist see her would be indicated at this time. #HTN: BP controlled. Continue current regimen of amlodipine and metoprolol. #Hyperglycemia: Discontinued SSI (haven't used) and BG checks to limit delirium. #Dysphagia: Now on regular diet per MILL CONTROL OPERATOR. VTE ppx: high risk, LMWH Diet: regular Code: FCFT Disposition: Remain inpatient for management of agitated delirium/acute encephalopathy although if she continues to remain stable/improving I believe she will be medically ready for discharge tomorrow (10/25). She has been accepted to [facility]. She is not a candidate for acute rehab. Subjective: Remained agitated overnight however seems improved in morning. She is calm and answering most questions appropriately. She denies pain, nausea, constipation, fevers. Objective: Vital Signs Temp Pulse Resp BP Pulse Ox 36.8 C 80 14 113/65 93 10/24/17 11:40 10/24/17 11:40 10/24/17 11:40 10/24/17 11:40 10/24/17 11:40 Laboratory Results 10/23/17 15:45 10/23/17 15:45 10/23/17 10/24/17 10/25/17 05:59 05:59 05:59 Intake Total 300 1050 Balance 300 1050 - Physical Exam Constitutional: no apparent distress, not in pain Eyes: PERRL, anicteric sclera, EOMI Ears, Nose, Mouth, Throat: moist mucous membranes, hearing normal, ears appear normal, no oral mucosal ulcers Cardiovascular: regular rate and rhythym, no murmur, rub, or gallop Respiratory: no respiratory distress, no rales or rhonchi Gastrointestinal: normoactive bowel sounds, soft, non-tender abdomen, no palpable masses Genitourinary: no bladder fullness, no bladder tenderness, no renal bruits Skin: no rashes or abrasions, no fluctuance, no induration Musculoskeletal: full muscle strength, no muscle tenderness, normal joint ROM Neurologic: other (alert and oriented x 1-2 (knew her name, knew that she was in [facility], and [place]), L dense hemiparesis, mild L hemineglect) Psychiatric: encephalopathic ICD10 Worksheet Patient Problems: Problems Problem Status Onset Altered mental status Acute Chest pain Acute Hemorrhagic cerebrovascular accident (CVA) Acute
--- NOTE | 2017-10-24 13:56 | ASMTCMCOM ---
CM Note CM Note Notes: 10/24/2017 Case Management Note Met w/pt son Jamar. Jamar is visiting from the [place] area. He can be reached at [phone]. Jamar in agreement with need for [facility]. Jamar requested a new neuro consult. Case Management informed Jamar that request needs to be discussed with MD by the family. Pt son Tristan lives locally and can be reached at [phone]. Jamar requested RN call him at d/c before pt is transferred to [facility]. [facility] Case Management to follow. Date Signed: 10/24/2017 01:55 PM Electronically Signed By:Fiona Rose RN
[2017-10-24] MEDS: MELATONIN 3 MG TAB PO SCH (19:59)
[2017-10-24] MEDS: QUEtiapine FUMARATE 25 MG TAB PO SCH (19:59)
[2017-10-25 09:30] VITALS: BP 118/65
[2017-10-25] MEDS: CHOLECALCIFEROL VIT D3 1,000 UNITS TAB PO SCH (11:08)
[2017-10-25] MEDS: ENOXAPARIN 40 MG/0.4 ML SYR SC SCH (11:08)
[2017-10-25] MEDS: METOPROLOL TARTRATE 50 MG TAB PO SCH (11:08)
[2017-10-25] MEDS: PANTOPRAZOLE SODIUM 40 MG TAB PO SCH (11:09)
[2017-10-25] MEDS: AQUAPHOR OINTMENT 3.5 OZ JAR TP SCH (11:09)
[2017-10-25] MEDS: amLODIPine BESYLATE 5 MG TAB PO SCH (11:09)
--- NOTE | 2017-10-25 11:53 | PDIAF ---
- Diagnosis Code Status: Full Code - Medication Management Discharge Medications: Medications to Continue on Transfer Cholecalciferol Vit D3 [Vitamin D3 (*)] 1,000 units PO DAILY 09/27/17 [Last Taken 10/16/17 08:40] Enoxaparin [Lovenox 40 MG (*)] 40 mg SQ DAILY 09/27/17 [Last Taken 10/16/17 08: 40] Metoprolol Tartrate [Lopressor 50 mg (*)] 50 mg PO BID 09/27/17 [Last Taken 08:40] Pantoprazole Sodium [Protonix 40mg (*)] 40 mg PO DAILY 09/27/17 [Last Taken 08:40] amLODIPine BESYLATE [Norvasc 5 mg (*)] 5 mg PO DAILY 09/27/17 [Last Taken 08:40] Acetaminophen [Tylenol ES 500 mg (*)] 1,000 mg PO Q8 10/16/17 [Last Taken 15:00] Bisacodyl [Dulcolax] 10 mg RC DAILY PRN 10/16/17 [Last Taken Unknown] Citalopram [CeleXA 20 MG] 20 mg PO DAILY 10/16/17 [Last Taken Unknown] Methyl Salicylate/Menthol [Bengay (*)] 1 bao TP Q6 PRN 10/16/17 [Last Taken ] Mineral Oil/Pet Hy-Phl [Aquaphor Ointment (*)] 1 bao TP BID 10/16/17 [Last Taken 10/16/17 08:40] Sennosides [Senokot] 1 each PO BID PRN 10/16/17 [Last Taken Unknown] Tears/Dextran 70/Hypromellose [Natural Balance Tears (*)] 1 drop EACHEYE Q2 PRN 10/16/17 [Last Taken 10/11/17 14:40] QUEtiapine FUMARATE [Seroquel 25 mg (*)] 12.5 mg PO DAILY PRN tab 10/25/17 [ Last Taken Unknown] QUEtiapine FUMARATE [Seroquel 25 mg (*)] 12.5 mg PO HS tab 10/25/17 [Last Taken Unknown] Discharge Medications: Refer to the Discharge Home Medication list for PRN reason. - Orders Services needed: Physical Therapy, Occupational Therapy, Speech Language Pathologist Diet Texture: Dysphagia 3 - Advanced - Moist, Bite-Size, Thin Liquids, Meds Whole w/Liquids Additional Instructions: 1. We have started you on seroquel (quetiapine) to help keep you calm at night and get restful sleep. You can also get this during the day on an as needed basis. 2. We have also discontinued your baclofen and other medications that may cause agitation. - Follow Up Care Current Providers and Referrals: BRANDY SALVADOR [Primary Care Provider] - As per Instructions
--- NOTE | 2017-10-25 12:09 | ASMTDCNOTE ---
Case Management Discharge Discharge Order Complete? Answers: Yes Patient to Obtain Answers: Other Notes: [facility] Medications Transportation Arranged Answers: [facility] will Pick (Date 10/25/2017 01:00 PM & Time) Case Management Transport Answers: Yes Form Complete Faxed Final Orders Answers: Yes Agency/Facility Transfer Answers: Yes Report Printed & Faxed to Receiving Agency Family Notified Answers: Yes Notes: Zan Pack in room. Phone call to nilson Roldan and Tristan Discharge Comments Notes: 10/25/2017 Case Management Note Phone calls to Amparo alerting to discharge plan. Zan Pack in room, discussed discharge plan as well. Notified family that [facility] is requiring family provide 24/ care for safety. Family aware that [facility] will require a written agreement once they arrive at the facility. Arranged transport with [facility] stretcher d/t pt left sided neglect and impulsiveness. Documented on PCS form pt unsafe to transport in wheelchair. Informed family there may be a charge if Medicare does not cover transport costs. Faxed final orders to jared. RN to call report. Case management d/c poc: to [facility]. Date Signed: 10/25/2017 12:09 PM Electronically Signed By:Fiona Rose RN
--- NOTE | 2017-10-25 12:26 | ASDISCHSUM ---
Discharge Information Plan Status:SNF Medically Cleared to Leave:10/23/2017 Discharge Date:10/23/2017 CM D/C Disposition:[facility] ADT D/C Disposition:[facility] Facility Projected Discharge Date:10/25/2017 11:00 AM Transportation at D/C:ALS/BLS Discharge Delay Reason: Follow-Up Date:10/25/2017 11:00 AM Discharge Slot: Final Diagnosis: Placement Information Referral Type:Acute Care Referral ID:[id number] Provider Name: Address 1: Phone Number: Address 2: Fax Number: City: Selection Factors: State: [facility] Type:[facility] Referral ID:[id number] Provider Name: Address 1: Phone Number: Address 2: Fax Number: City: Selection Factors: State: Referral Type:*Correction/SNF Referral ID:[id number] Provider Name:[facility] Address 1:[address] Address 2: City:[place] Selection Factors: State:[place] Referral Type:[facility] Referral ID:[id number] Provider Name: Address 1: Phone Number: Address 2: Fax Number: City: Selection Factors: State: Referral Type:Palliative Care Referral ID:[id number] Provider Name:[facility] Address 1:[address] Phone Number: Address 2: Fax Number: City:[place] Selection Factors: State:[place] Patient Contact Information Contact Name:NARESH Relationship: Address:[address] Work Phone: [facility]:[place] Alternate Phone: State/Zip Code:[place] [address] Email: Financial Information Financial Class:Medicare Primary Plan Desc:MEDICARE INPATIENT Primary Plan Number:[id number] Secondary Plan Desc:[employer]ANCE Secondary Plan Number:[id number] Assessment Information [facility] Initial CM Assessment Living Arrangements What is your living Answers: With Spouse arrangement? Who do you live with? Type Of Residence What kind of residence do Answers: House you live in? Discharge Plan Comments Coordination Status Comments Notes: Pt is a 67 y/o female admitted for ams, recent cva and chest pain. Pt was recently at [facility] inpatient rehab from 09/27/17 to 10/16/17. Therapies have been ordered and awaiting recommendations. Pt will most likely d/c back to [facility] inpatient rehab, if appropriate. CM spoke to pts son Tristan (P# [phone]) and provided updates. CM to follow. Plan: TBD Date Signed: 10/17/2017 11:55 AM Electronically Signed By:RAPHAEL Harden [facility] MARYAM Progress Note CM Note CM Note Notes: CM spoke w/ pts family regarding d/c POC per their request. PT is recommending inpatient rehab. MARYAM spoke to Yudith from inpatient rehab and they had a team discussion today and thought that it would not be appropriate for pt to return. Yudith reports that pt is unable to do 3 hours of therapies a day. The recommendation from inpatient rehab is for pt to transition to a SNF. MARYAM spoke to Dr. Anthony. Dr. Anthony would like pt to get into a stroke rehab program. Referral sent to inpatient rehab facilities. Family would like another referral made to [facility] in [place]. CM to follow. Plan: TBD Date Signed: 10/17/2017 02:52 PM Electronically Signed By:RAPHAEL Harden [facility] MARYAM Progress Note CM Note MARYAM Note Notes: CM spoke to Delma Soriano and Sirena regarding d/c POC. CM discussed w/ them the different levels of care. Christie and Delma had questions about insurance coverage. CM provided them w/ phone number for financial counseling. CM contacted Teagan Uriarte w/ financial counseling and pt has Medicare part A and B coverage. Teagan will follow up with patient on a secondary insurance. Chasity from [facility] came and met w/ them today. [facility] has accepted pt. [facility] denied pt. CM left a msg for Kaila, the case monitor from inpatient rehab. CM to follow. Plan: [facility] SNF Date Signed: 10/18/2017 03:25 PM Electronically Signed By:RAPHAEL Harden [facility] Progress Note CM Note CM Note Notes: Pts case discussed in tx rounds. CM met w/ pts family to discuss d/c plans. Pts family went over to [facility] for a care conference. Family has significant concerns about pts safety and potential for falling out of bed and chair. Pt has been off a roll belt and sitter since yesterday. CM spoke to Leticia charge nurse, Dr. Anthony and Breana purchasing manager manager about this case. Breana will call Sirena, the niece. Potential care conference on Sunday w/ MD, neurology, RN, and SWer. Gaspar from [facility] will need to speak to her DON and COLD ROLLING MACHINE SETTER to discuss if they can still accept pt. [facility] is recommending pt has 24hr supervision until pts confusion clears. CM suggested that family takes turn w/ keeping pt company. CM provided family w/ list of non skilled HC for a private duty caregiver. CM notified [employer] that pt would benefit from a Medicaid evaluation for HCBS services. Teagan Uriarte from financial counseling met w/ pt today. Teagan will be inquiring about a secondary insurance. Pt reported to Teagan that she has [employer] as her secondary. CM provided Teagan w/ phone number for Sirena to follow up. Pts son from [place] will be here on Sunday. CM spoke to Kaila social work administrator at inpatient rehab. CM to follow. Plan: TBD Date Signed: 10/19/2017 03:22 PM Electronically Signed By:RAPHAEL Harden [facility] MARYAM Progress Note MARYAM Note MARYAM Note Notes: I spoke with patient's niece at length this afternoon. After meeting with [facility] in [place] today, family is now leaning towards choosing a facility that will accommodate LTC - as they believe she will eventually need to 'live' somewhere. I recommended both [facility] and [facility], zan states they will check into both facilities. Zan has also been in touch with a Medicaid specialist about getting her aunt on Medicaid. CM has also sent a referral to [employer], they will follow-up and screen for Medicaid on Sunday. The family is also exploring ways in which they can either help provided 1:1 care at the SNF or hire private care, (they are considering a Go Fund Me page) as they are quite concerned about patient's safety, rolling out of bed, etc. I explained that patient is medically ready for d/c and encouraged family to tour facilities and follow-up with MARYAM eddy. Niece states patient's other son will be flying into town this weekend and will be driving this plan. Referrals have yet to be sent to the two facilities above, will wait to speak with family about choice. A care conference may be necessary on Sunday, pending events this weekend. We will also need to notify [facility] in [place] of this potential change in plans. Zan has my # and can reach out to me at any time with questions. CM will follow-up this weekend. Plan: SNF Date Signed: 10/19/2017 08:34 PM Electronically Signed By:Breana Harmon RN [facility] Progress Note CM Note CM Note Notes: CM met with Pt and family. Multiple questions re insurance and what services can be paid for. CM recommended that they have a family mtg with physician on Sunday with the focus on what services might be recommended once Pt is [facility] and ready for D/C. There are many family members present with many different thoughts and ideas, with one of the family members becoming upset easily; the environment can become quite chaotic and appears to distress Pt. Family was told family mtg should be limited to Pt and 1-2 people so that the environment is more conducive to decision making. [facility] has accepted Pt. Niamy reported [facility] Acute care indicated Pt was not making enough progress to return. CM left a message for Yudith in order to rule out [facility] as a discharge option. CM to follow. D/C: TBD Date Signed: 10/20/2017 01:17 PM Electronically Signed By:Keri Moctezuma [facility] MARYAM Progress Note CM Note CM Note Notes: Met with son from [place] who expressed frustration and concern over plan of care for his mother. He would like to participate in a family meeting to ascertain plan of care from this point forward. He would be available in the morning about 10 am. I have attempted to see if Dr. Ellis might be able to make this time. CM to follow. Date Signed: 10/21/2017 04:11 PM Electronically Signed By:Alexus Goldsmith RN [facility] Progress Note CM Note CM Note Notes: Discussed patient with Dr. Ellis. Family meeting involved son Curry and Niece Cheryl. Reviewed patient's medical status and nearing criteria for discharge to SNF. Family is coming to terms with challenges in setting of patient's high fall risk and providing additional services to help with patient safety as in hiring helpers to sit with patient as 24 hour care givers. I will provide them with resources. I have placed a call to Jacquelyn at [facility] as family is still wishing to pursue placement at this facility. CM to follow. Plan: To SNF with additional caregivers as provided by family. Date Signed: 10/22/2017 10:47 AM Electronically Signed By:Alexus Goldsmith RN [facility] Progress Note CM Note CM Note Notes: This CM spoke with Josie at [facility], they are denying patient admission at this time as they feel unable to meet the needs of the patient and family. I attempted to reach Jamar her son and left a message for he and his cousin to possible check into other facilities. Awaiting a return call. Referrals to [facility] as well as [facility]. Mei Lundy also aware of situation. CM to follow. Plan: To SNF when medically ready for discharge. Date Signed: 10/22/2017 01:31 PM Electronically Signed By:Alexus Goldsmith RN [facility] Progress Note CM Note CM Note Notes: Patient reviewed in rounds. Agitation persists. She did sleep well. family remains guarded and fearful of safe dc to SNF. They are inquiring about another neurologist to consult. informed. I have spoken to them at length regarding their options for SNF and the uncertainty and unpredictability of presentation with a stroke patient. The patient remains profoundly spastic and has significant left sided neglect. She also exhibits emotional outbursts and disorganized thoughts. I have explained that in lieu of taking her home and caring for her themselves they can arrange for sitters at what ever facility they may choose. They have expressed near disbelief at the impact of covering the cost of sitters. Over 45 minutes spent counseling family today. I called over to inpatient rehab where I was informed that she is not eligible to return to acute care due to lack of progress. I also spoke to Kaila Roldan the CM at inpatient who has worked extensively with the family and reports that the family has been informed of progress and need for SNF with added care paid for by family for a long period of time. Will see if the [facility] Program Co-ordinator might be able to visit with the family to help assist with understanding the complexities of her situation. Plan: To SNF when medically cleared for discharge. Date Signed: 10/23/2017 04:47 PM Electronically Signed By:Alexus Goldsmith RN [facility] Progress Note CM Note CM Note Notes: 10/24/2017 Case Management Note Met w/pt son Jamar. Jamar is visiting from the [facility]. He can be reached at [phone]. Jamar in agreement with need for [facility]. Jamar requested a new neuro consult. Case Management informed Jamar that request needs to be discussed with MD by the family. Pt son Tristan lives locally and can be reached at [phone]. Jamar requested RN call him at d/c before pt is transferred to [facility]. [facility] to follow. Date Signed: 10/24/2017 01:55 PM Electronically Signed By:Fiona Rose RN Case Management Discharge Plan Note Case Management Discharge Discharge Order Complete? Answers: Yes Patient to Obtain Answers: Other Notes: [facility] Medications Transportation Arranged Answers: [facility] Transport will Pick (Date 10/25/2017 01:00 PM & Time) Case Management Transport Answers: Yes Form Complete Faxed Final Orders Answers: Yes Agency/Facility Transfer Answers: Yes Report Printed & Faxed to Receiving Agency Family Notified Answers: Yes Notes: Zan Pack in room. Phone call to nilson Roldan and Tristan Discharge Comments Notes: 10/25/2017 Case Management Note Phone calls to Tristan and Jamar alerting to discharge plan. Zan Pack in room, discussed discharge plan as well. Notified family that [facility] is requiring family provide / care for safety. Family aware that [facility] will require a written agreement once they arrive at the facility. Arranged transport with [facility] stretcher d/t pt left sided neglect and impulsiveness. Documented on PCS form pt unsafe to transport in wheelchair. Informed family there may be a charge if Medicare does not cover transport costs. Faxed final orders to [facility]. RN to call report. Case management d/c poc: to [facility]. Date Signed: 10/25/2017 12:09 PM Electronically Signed By:Fiona Rose RN [facility] CM Progress Note CM Note CM Note Notes: 10/25/2017 Case Management Note Palliative outpatient referral sent to [facility]. Therese Roe accepted pt on the phone and will contact dorota Roldan to arrange intake meeting at [facility]. Date Signed: 10/25/2017 12:25 PM Electronically Signed By:Fiona Rose RN Intervention Information Intervention Type:*IM-Signed Date of Service:10/25/2017 12:13 PM Patient Type:Inpatient Staff Member:Salena Allison Hours: Discipline: Severity: Comment:
--- NOTE | 2017-10-25 12:27 | ASMTLACE ---
WLAI Length of stay for Answers: 7-13 days current admission Acuity / Level of Answers: Yes Care: Did the patient have an inpatient admission? Comorbidities - select Answers: Cerebrovascular disease all that apply (CVA, TIA, aneurysms, vasc ular dementia) Other Notes: HTN # of Emergency department Answers: 1-2 visits in the last 6 months Social determinants Answers: Mental health diagnosis (anxiety, depression, pers onality disorders, etc.) Score: 14 Date Signed: 10/25/2017 12:26 PM Electronically Signed By:Fiona Rose RN
--- NOTE | 2017-10-25 16:37 | PDDCSUM ---
Discharge Summary Discharge Summary: Date of Admission: 10/16/2017 Date of Discharge: 10/25/2017 Consultants: neurology Procedures/Studies: CTA chest - negative for PE or aortic pathology; BLE venous duplex US - negative for DVT Brief Hospital Course by Diagnosis: Ms Barrera is a 67yo F with history of recent R parietal intracranial hemorrhage resulting in L sided paresis and L hemineglect who presents from [facility] due to altered mental status. # Acute encephalopathy with agitated delirium: Suspect related to baclofen uptitration and environmental changes. She waxed and waned throughout admission but had been stable without sitter for >24 hours prior to discharge. We discontinued baclofen and advise avoiding other centrally acting medications as able as she seems to be easily susceptible to delirium. We did add seroquel 12.5mg QHS as well as during the day PRN which seems to help. #R parietal hemorrhagic CVA: Craniotomy at [facility] in 08/2017. Dense left hemiparesis with spasticity and hemineglect. CT head here was stable. She has not progressed after 1 month of inpatient rehab and is no longer a candidate for this. She continued to work with PT/OT/[employer] INST[employer]ER while inpatient and was discharged to [facility]. Neurology was consulted: discussed prognosis and low likelihood of further recovery. No indication for antiplatelet agent. #Leukocytosis: Unclear etiology. UA, CXR, BCx without source. No localizing source on exam. #HTN: BP controlled with amlodipine and metoprolol. #Hyperglycemia: BG consistently <180 without intervention. No medications at discharge for this. #Dysphagia: [employer] recommended dysphagia 3 diet with thin liquids. #Tobacco use Follow Up Plan/Items for Follow Up: 1. Outpatient neurology appt for consideration of botox injection to treat spasticity 2. Consider adding back low dose (5mg) baclofen. Patient seemed to be very susceptible to delirium upon adding back centrally acting medications. 3. Monitor and titrate BP meds Tests Pending at Discharge: finalized blood cultures Medications at Discharge: Please refer to EMR for complete medication list. Physical Exam: Vitals reviewed and patient examined on day of discharge. She was alert and interacting appropriately with occasional confusion. She had normal cardiac and pulmonary exams. She had dense left sided hemiparesis with left hemineglect.
== END 2017-10-25 12:46 | DRG 71 ==
LOC: EDUNIT# → F2W 23:10
PROVIDERS: ADMIT Internal Medicine; ATTEND Internal Medicine
DX: G93.49 Other encephalopathy (principal); I69.154 Hemiplegia and hemiparesis following nontraumatic intracerebral hemorrhage affecting left non-dominant side; R45.1 Restlessness and agitation; M25.512 Pain in left shoulder; I10 Essential (primary) hypertension; R73.9 Hyperglycemia, unspecified; F17.200 Nicotine dependence, unspecified, uncomplicated; I69.191 Dysphagia following nontraumatic intracerebral hemorrhage; I69.120 Aphasia following nontraumatic intracerebral hemorrhage; Z23 Encounter for immunization
CPT/HCPCS: 84484-PO; 92507-GN; 92523-GN; 92526-GN; 92610-GN; 97112-GO; 97112-GP; 97116-GP; 97163-GP; 97167-GO; 97530-GO; 97530-GP; 97535-GO; G0009; G0480; G8978-GP-CL; G8979-GP-CJ; G8987-GO-CM; G8988-GO-CL; G8996-GN-CI; G8997-GN-CI; G8998-GN-CI; G9165-GN-CL; G9166-GN-CK; G9167-GN-CK; J1650; Q9967